=== PATIENT | female | born 2005 | race Two or more races ===

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

== ENCOUNTER 2025-03-04 11:14 | Emergency (ER) | payer OTHER, SELFPAY ==
--- NOTE | ~2025-03-04 | US_ITS ---
US PELVIS, COMPLETE CLINICAL INFORMATION: pelvic pain COMPARISON: CT abdomen 08/31/2023 TECHNIQUE: Transabdominal and transvaginal imaging was performed. FINDINGS: LMP: 02/23/2025 Uterus is anteverted and anteflexed , measuring 7.7 x 3.7 x 4.3 cm. No focal uterine lesion. Endometrial thickness 0.2 cm. Right ovary measures 3.4 x 1.3 x 3 cm. Volume 6.9 mL. Arterial and venous doppler flow demonstrated. Left ovary measures 2.5 x 1.8 x 1.8 cm. Volume 4.2 mL. Arterial and venous Doppler flow demonstrated. Follicles seen in bilateral ovaries.. There is prominence of the uterine vessels, could represent uterine congestion. Small free fluid in the cul-de-sac. US/US pelvic ovarian doppler IMPRESSION: Bilateral ovaries appear within normal limits. There is normal arterial and venous Doppler flow seen. No sonographic findings to suggest ovarian torsion. Prominence of the uterine vessels, nonspecific. This could represent uterine congestion. Electronically signed by: Wilian Jama MD 03/04/2025 01:32 PM EST
--- NOTE | ~2025-03-04 | US_ITS ---
US PELVIS, COMPLETE CLINICAL INFORMATION: pelvic pain COMPARISON: CT abdomen 08/31/2023 TECHNIQUE: Transabdominal and transvaginal imaging was performed. FINDINGS: LMP: 02/23/2025 Uterus is anteverted and anteflexed , measuring 7.7 x 3.7 x 4.3 cm. No focal uterine lesion. Endometrial thickness 0.2 cm. Right ovary measures 3.4 x 1.3 x 3 cm. Volume 6.9 mL. Arterial and venous doppler flow demonstrated. Left ovary measures 2.5 x 1.8 x 1.8 cm. Volume 4.2 mL. Arterial and venous Doppler flow demonstrated. Follicles seen in bilateral ovaries.. There is prominence of the uterine vessels, could represent uterine congestion. Small free fluid in the cul-de-sac. US/US pelvic and transvaginal IMPRESSION: Bilateral ovaries appear within normal limits. There is normal arterial and venous Doppler flow seen. No sonographic findings to suggest ovarian torsion. Prominence of the uterine vessels, nonspecific. This could represent uterine congestion. Electronically signed by: Wilian Jama MD 03/04/2025 01:32 PM EST
[2025-03-04 11:30] VITALS: BP 109/63; PULSE 86; RESP 18; TEMP 36.5; O2SAT 97; BMI 17.4
--- NOTE | 2025-03-04 11:32 | ED.FEMALEGU ---
HPI - Female Genitourinary General Chief complaint: Vaginal Bleeding Stated complaint: vaginal bleeding Time Seen by Provider: 03/04/25 16:09 Source: patient Mode of arrival: ambulatory Limitations: no limitations History of Present Illness ED Provider: Rafia Esqueda PA-C HPI Narrative: Patient is a 19 year old assigned female at with a history of depression, anxiety, and IBS presenting to the emergency department today with vaginal bleeding and lower abdominal pain. Patient states that she recently took a plan B pill and noticed today that she had vaginal bleeding despite already having her menstrual cycle. Patient states that she has had some lower abdominal cramping as well. Patient requested that her mother not be informed of any of the care or reason for the care the patient is receiving today. Patient denies any other complaints at this time. Related Data Previous Rx's ?Medication ?Instructions ?Recorded polyethylene glycol 3350 17 17 g PO DAILY #238 grams 09/01/23 gram/dose oral powder (Miralax) nitrofurantoin 100 mg PO Q12H 5 days #10 caps 10/05/23 monohydrate/macrocrystals 100 mg capsule (Macrobid) nitrofurantoin 100 mg PO Q12H 7 days #13 caps 02/04/24 monohydrate/macrocrystals 100 mg capsule (Macrobid) ondansetron 4 mg disintegrating 4 mg PO Q8H 3 days #9 tabs 12/10/24 tablet nitrofurantoin 100 mg PO Q12H 7 days #14 caps 03/04/25 monohydrate/macrocrystals 100 mg capsule (Macrobid) Allergies Allergy/AdvReac Type Severity Reaction Status Date / Time azithromycin (AZITHROMYCIN) Allergy Unknown SWELLING Verified 03/04/25 11:33 cephalexin (Cephalexin) Allergy Unknown rash Verified 03/04/25 11:33 Review of Systems Constitutional: Constitutional: Reports as per HPI Eyes: Eyes: Reports as per HPI ENT: Reports as per HPI Cardiovascular: Cardiovascular: Reports as per HPI Respiratory: Respiratory: Reports as per HPI Gastrointestinal: Gastrointestinal: Reports as per HPI Genitourinary: Genitourinary: Reports as per HPI Musculoskeletal: Musculoskeletal: Reports as per HPI Integumentary/Breasts: Skin/Breast: Reports as per HPI Neurologic: Reports as per HPI Psychiatric: Psychiatric: Reports as per HPI Endocrine: Endocrine: Reports as per HPI Hematologic/Lymphatic: Hematologic/Lymphatic: Reports as per HPI Allergic/Immunologic: Allergic/Immunologic: Reports as per HPI [facility] Past Medical History Attestation statement: The following information was validated with the patient. Source: old records reviewed and nursing notes reviewed Medical History Depression Anxiety IBS (irritable bowel syndrome) Social History Social History Patient Tobacco Use Status: Never used Tobacco Substance Use Type: Marijuana Advance Directives: No Advance Directives Information Provided: No Do you have a plan to hurt others: No Plan Physical Exam Vital Signs: Vital Signs: Last Vital Signs Temp 97.7 F 03/04/25 16:38 Pulse 86 03/04/25 16:38 Resp 18 03/04/25 16:38 BP 109/63 03/04/25 16:38 Pulse Ox 97 03/04/25 16:38 O2 Del Method Room Air 03/04/25 16:38 BMI result Body Mass Index 17.4 Const: General: cooperative, no acute distress, alert and awake Nutritional Appearance: well nourished Orientation/consciousness: patient oriented x3 HEENT: Head: Yes normal to inspection and Yes atraumatic Ears: hearing grossly normal bilaterally and external ears normal General nose exam: Normal external nose present, no nasal discharge noted and no epistaxis Face and sinus: Yes normal facial exam, No abrasion and No laceration Mouth: Normal oral and palatal mucosa present, no drooling and no muffled voice Eyes: General: appearance normal, both eyes and all related structures Periorbital: periorbital findings normal Eyelids: Yes eyelids normal Conjunctivae: conjunctivae normal Pupils: Equal, round and reactive pupils present EOM: EOMs intact bilaterally Neck: Neck: Yes normal visual inspection and Yes full ROM Resp: Effort & Inspection: normal respiratory effort and able to speak in complete sentences Neuro: General: patient oriented x3, moves all extremities and CN's II-XI intact bilaterally Cranial nerves: Yes Equal, round and reactive pupils present Cognition (Neuro): normal cognition Extrem: General: Yes normal to inspection, Yes full ROM and Yes capillary refill normal Psych: Appearance: grossly normal Mental Status: mental status grossly normal Affect: normal affect Attitude: cooperative Thought process: Normal thought process present Thought content: Normal thought content present Insight: Good insight present (Psych) Course Course Course Narrative: This is an RME: Additional HPI, ROS, PE not included below will be deferred to primary provider. RME assessment and note performed by: Steffanie Bender PA-C This is a 20-eyng-whx-female who presents to the ER with complaints of lower abdominal cramping and vaginal bleeding. Took plan b on tuesday 02/27, has had pelvic pain and bleeding since. Pt with TTP in the suprapubic region reporting sharp in nature, guarding. Reporting pain is sharp in nature. Plan: Labs, UA, ultrasound, further ER evaluation needed. Medical Decision Making Medical Decision Making [facility] Narrative: Patient is a 19 year old assigned female at with a history of depression, anxiety, and IBS presenting to the emergency department today with vaginal bleeding and lower abdominal pain. Patient's physical exam was as noted in the physical exam portion of this note. Patient's blood work was unremarkable. Patient's urine showed a possible UTI - given patient's lower abdominal pain, will treat with an antibiotic. Patient's pelvic/transvaginal US showed no acute process. Patients' clinical presentation is most consistent with uterine bleeding after appropriate emergency contraception use and possible UTI. I explained my physical exam findings as well as all test results to the patient. I answered all questions asked by the patient. I stressed the importance of the patient taking her medication as directed (either prescribed or as the over the counter packaging recommends). I stressed the importance of the patient following up with her primary care provider and an OBGYN. I stressed the importance of the patient returning to the emergency department immediately if her symptoms were to worsen or if she were to develop any dizziness, shortness of breath, difficulty breathing, chest pain, blurry vision, loss of vision, nausea, vomiting, abdominal pain, fever, chills, back pain, or any other complaints. Patient verbalized agreement and understanding with this treatment plan and discharge. Differential Diagnosis Differential Diagnoses: The differential diagnosis associated with the presentation includes Vaginal bleeding Appropriate emergency contraception use UTI Admission/Observation Consideration of admission/observation: Escalation of care including admission/observation considered Patient would have been admitted to the hospital had her work up had any findings where hospital admission was appropriate and her clinical presentation warranted hospital admission. Lab Data [facility] Lab Attestation statement: I reviewed the patient's lab results. My interpretation of these results are in the [facility] Rationale portion of this note. 03/04/25 11:46 03/04/25 11:46 Labs: Lab Results 03/04/25 03/04/25 Range/Units 11:46 15:36 WBC 5.3 (4.8-10.8) X10*3/uL RBC 4.73 (4.20-5.50) X10*6/uL Hgb 13.1 (12.0-16.0) g/dl Hct 40.4 (37.0-47.0) % MCV 85.4 (80.0-98.0) fL MCH 27.7 (27.0-33.0) pg MCHC 32.4 (31.0-35.0) g/dl RDW 13.5 (11.0-16.0) % Plt Count 262 (160-400) X10*3/uL MPV 11.1 (9.4-12.3) fL Immature Gran % (Auto) 0.2 (0.0-0.4) % Neut % (Auto) 67.8 (45-73) % Lymph % (Auto) 18.8 L (20-40) % [place] % (Auto) 11.8 H (2-11) % Eos % (Auto) 0.8 (0-4) % Baso % (Auto) 0.6 (0-2) % Lymph # (Auto) 1.0 L (1.2-4.9) X10*3/uL [place] # (Auto) 0.6 (0.1-1.2) X10*3/uL Eos # (Auto) 0.0 (0.0-0.4) X10*3/uL Baso # (Auto) 0.0 (0.0-0.2) X10*3/uL Abs Immat Gran (auto) 0.01 (0.00-0.03) X10*3/uL Absolute Neuts (auto) 3.6 (2.0-8.3) x10*3/uL Absolute Nucleated RBC 0.000 (0.0-0.012) X10*3/uL Nucleated RBC % (auto) 0.0 (0.0-0.2) /100WBC Sodium 140 (135-145) mmol/L Potassium 4.1 (3.3-5.1) mmol/L Chloride 109 H (96-108) mmol/L Carbon Dioxide 27 (22-29) mmol/L Anion Gap 8 L (12-20) BUN 12 (9-16) mg/dL Creatinine 0.81 (0.5-1.4) mg/dL Estim Creat Clear Calc 73.7 Estimated GFR > 60 Random Glucose 98 (60-115) mg/dL Calcium 9.4 (8.4-10.2) mg/dL Total Bilirubin 0.2 (0.0-1.0) mg/dL Direct Bilirubin < 0.2 (0.0-0.5) mg/dL AST 21 (5-31) U/L ALT 9 (0-31) U/L Alkaline Phosphatase 78 (39-117) U/L Total Protein 7.4 (6.5-8.0) g/dL Albumin 4.6 (3.5-5.0) g/dL Beta HCG, Quant < 2 mIU/mL Urine Color Yellow Urine Appearance Cloudy Urine pH 5.5 (5.0-9.0) Ur Specific [place] 1.020 (1.005-1.025) Urine Protein Trace (Neg-Trace) mg/dL Urine Glucose (UA) Negative (Negative) mg/dL Urine Ketones Trace (Negative) mg/dL Urine Blood Large (3+) H (Negative) Urine Nitrite Negative (Negative) Ur Leukocyte Esterase Large (3+) H (Negative) Urine RBC 3-5 H (0-2) /HPF Urine WBC 11-20 H (0-5) /HPF Ur Squamous Epith Cells >20 (0-2) /HPF Calcium Oxalate Crystal Present Urine Bacteria 2+ (None Seen) Hyaline Casts 0-2 (0-2) /LPF Independent Interpretation I performed an independent interpretation of an: Ultrasound Interpretation: My interpretation is in agreement with the radiologist's impression of this imaging study as written below. Reason for Exam: pelvic pain US PELVIS, COMPLETE CLINICAL INFORMATION: pelvic pain COMPARISON: CT abdomen 08/31/2023 TECHNIQUE: Transabdominal and transvaginal imaging was performed. FINDINGS: LMP: 02/23/2025 Uterus is anteverted and anteflexed , measuring 7.7 x 3.7 x 4.3 cm.No focal uterine lesion. Endometrial thickness 0.2 cm. Right ovary measures 3.4 x 1.3 x 3 cm. Volume 6.9 mL. Arterial and venous doppler flow demonstrated. Left ovary measures 2.5 x 1.8 x 1.8 cm. Volume 4.2 mL. Arterial and venous Doppler flow demonstrated. Follicles seen in bilateral ovaries.. There is prominence of the uterine vessels, could represent uterine congestion. Small free fluid in the cul-de-sac. US/US pelvic ovarian doppler IMPRESSION: Bilateral ovaries appear within normal limits. There is normal arterial and venous Doppler flow seen. No sonographic findings to suggest ovarian torsion. Prominence of the uterine vessels, nonspecific. This could represent uterine congestion. Electronically signed by: Wilian Jama MD 03/04/2025 01:32 PM [facility] Dictated By: Wilian Jama MD Signed By: Electronically signed by Wilian Jama MD 03/04/25 1330 Radiology Impression Discussion of test interpretation with radiology: I have reviewed the radiologist's reading. Prescription Management I considered prescription management with: Antibiotic (patient prescribed an antibiotic for possible UTI) Discharge Plan Discharge Clinical Impression: Vaginal bleeding Urinary tract infection Qualifiers: Urinary tract infection type: site unspecified Hematuria presence: with hematuria Qualified Code(s): N39.0 - Urinary tract infection, site not specified Patient Disposition: Home, Self-Care Instructions: Urinary Tract Infection in Women (DC) Additional Instructions: Your ultrasound was unremarkable. Take your antibiotic as prescribed. IF you are prescribed home medications and/or you are taking over the counter medications at home - it is very important you continue to do so as prescribed / directed unless told otherwise by a healthcare provider. Follow up with your primary care provider. Do your best to stay well hydrated and rest. Return to the emergency department immediately if your symptoms worsen or if you develop any numbness, tingling, dizziness, shortness of breath, difficulty breathing, chest pain, blurry vision, loss of vision, nausea, vomiting, abdominal pain, fever, chills, back pain, or any other complaints. If you do not have an OBGYN - call any of the below numbers to establish and follow up with an OBGYN provider. [facility] OBGYN [address] [facility] [phone] [facility] [address] [phone] OBGYN and Midwifery [facility] [address] [facility] [phone] If you do not have a primary care provider - call any of the below numbers to establish and follow up with a primary care provider. [facility] Primary Care ([place]) [phone] [place] [address], [address] [facility] Primary Care ([address] [place]) [phone] [address] [facility], [address] [facility], [address] [facility] Primary Care ([address] [place]) [phone] [address] [facility], [address] [facility], [address] [facility] Primary Care ([place]) [phone] [place] [address] [address] [facility], [address] [facility] Family Medicine [phone] [address] [facility], [address] Please see the information below about our Patient Portal. If you are not yet enrolled in the [facility] Patient Portal, you will receive an enrollment email invitation following your visit to any [facility] care setting. You may also self-enroll in the Patient Portal by visiting our website: [email or web address] The following information is required to access the Patient Portal: - Your [facility] Medical Record Number - Your personal home email address (must match what is in your electronic medical record, Registration staff can assist with this) - Name - Date of Capabilities of the Patient Portal: - Message some providers - View upcoming appointments - Access your health summary, medical history, and visit history - View current conditions and allergies - View procedure and lab results - View your medications, including guidelines, side effects, and precautions - Complete pre-appointment questionnaires requested by your provider - Ready summary reports of your office visits and procedures To access the Patient Portal Mobile John, follow these directions: - Search [employer] in the John Store or [employer] Store - Download the John - Search for [facility] - Enter your login/password Prescriptions: New nitrofurantoin monohyd/m-cryst [Macrobid] 100 mg capsule 100 mg PO Q12H 7 Days Qty: 14 0RF Rx Instructions: must administer with a meal/food No Action polyethylene glycol 3350 [Miralax] 17 gram/dose powder 17 g PO DAILY Qty: 238 0RF nitrofurantoin monohyd/m-cryst [Macrobid] 100 mg capsule 100 mg PO Q12H 5 Days Qty: 10 0RF Rx Instructions: must administer with a meal/food ondansetron 4 mg tablet,disintegrating 4 mg PO Q8H 3 Days Qty: 9 0RF nitrofurantoin monohyd/m-cryst [Macrobid] 100 mg capsule 100 mg PO Q12H 7 Days Qty: 13 0RF Rx Instructions: must administer with a meal/food Referrals: [facility] [Primary Care Provider, Primary Care] Stand Alone Forms: Work/School Release Interventions: ED Discharge Assessment Last Done: 03/04/25 16:38 Discharge Date/Time: 03/04/25 16:39 Print Language: Citizen Of [place]
[2025-03-04 11:50] LABS: MANUAL DIFF FLAG NO
[2025-03-04 11:52] LABS: Hematocrit 40.4 % (37.0-47.0); Hemoglobin 13.1 g/dl (12.0-16.0); Imm Gran Abs Auto 0.01 X10*3/uL (0.00-0.03); Imm Gran Pct Auto 0.2 % (0.0-0.4); Lymphocytes Absolute Auto 1.0 X10*3/uL (1.2-4.9); Mean Corpuscular HGB Conc 32.4 g/dl (31.0-35.0); Mean Corpuscular Hemoglobin 27.7 pg (27.0-33.0); Mean Corpuscular Volume 85.4 fL (80.0-98.0); NRBC Abs Auto 0.000 X10*3/uL (0.0-0.012); NRBC Pct Auto 0.0 /100WBC (0.0-0.2); Platelet Count 262 X10*3/uL (160-400); Red Blood Count 4.73 X10*6/uL (4.20-5.50); White Blood Count 5.3 X10*3/uL (4.8-10.8)
[2025-03-04 12:17] LABS: Alanine Aminotransferase 9 U/L (0-31); Albumin Level 4.6 g/dL (3.5-5.0); Alkaline Phosphatase 78 U/L (39-117); Anion Gap 8 (12-20); Aspartate Amino Transferase 21 U/L (5-31); Blood Urea Nitrogen 12 mg/dL (9-16); Calcium 9.4 mg/dL (8.4-10.2); Carbon Dioxide 27 mmol/L (22-29); Chloride 109 mmol/L (96-108); Creatinine Clr Calc Pharmacy 73.7; Estimated Glomerular Filt Rate > 60; Potassium 4.1 mmol/L (3.3-5.1); Sodium 140 mmol/L (135-145); Total Protein 7.4 g/dL (6.5-8.0)
[2025-03-04 15:46] LABS: Appearance Urine Cloudy; Glucose Urine UA Negative (Negative); PH 5.5 (5.0-9.0); Specific Gravity - Urine 1.020 (1.005-1.025); UMIC TRIGGER UACC YES
[2025-03-04 16:00] LABS: UACC Culture Trigger YES
[2025-03-04 16:38] VITALS: BP 109/63; PULSE 86; RESP 18; TEMP 36.5; O2SAT 97
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
== END 2025-03-04 16:39 | disposition home or self-care (01) ==
PROVIDERS: Physician Assistant Medical; Emergency Provider Emergency Medicine
DX: N93.9 Abnormal uterine and vaginal bleeding, unspecified (principal); N39.0 Urinary tract infection, site not specified; R10.20 Pelvic and perineal pain unspecified side
CPT/HCPCS: 36415; 76830; 76856; 80048; 80076; 81001; 84702; 85025; 87086; 93975; 99282; 99284; 99285